=== PATIENT | female | born 2000 | race African-American/Black ===

== ENCOUNTER 2021-07-05 16:53 | Emergency (ER) | payer OTHER ==
[2021-07-05 17:23] VITALS: BP 102/70; PULSE 88; TEMP 97.8; BMI 19.9
== END 2021-07-05 18:13 | disposition home or self-care (01) ==
LOC: JER 16:53 → JERFT 16:53
DX: N64.4 Mastodynia (principal)
CPT/HCPCS: 99282-25

== ENCOUNTER 2022-06-07 12:23 | Emergency (ER) | payer OTHER ==
[2022-06-07 12:42] VITALS: BP 102/68; PULSE 89; RESP 20; TEMP 98.4; BMI 20.5
[2022-06-07 14:50] LABS: HCG,QUALITATIVE URINE Negative
[2022-06-07 14:51] LABS: EPI CELLS >36 /uL (0-25.1); HYALINE CASTS 2 /uL (0-3.1); PH,URINE 8.5 (5.0-8.0); URINE APPEARANCE CLOUDY; URINE BACTERIA 508 /uL (0-1359); URINE BILIRUBIN NEGATIVE (NEGATIVE); URINE COLOR YELLOW; URINE GLUCOSE (UA) NEGATIVE (NEGATIVE); URINE KETONE TRACE (NEGATIVE); URINE LEUK ESTERASE 2+ (NEGATIVE); URINE NITRITE NEGATIVE (NEGATIVE); URINE PROTEIN TRACE (NEGATIVE); URINE RBC 22 /uL (0-23.9); URINE WBC 172 /uL (0-25.8)
== END 2022-06-07 15:26 | disposition home or self-care (01) ==
LOC: JERFT 12:23
DX: N30.00 Acute cystitis without hematuria (principal)
CPT/HCPCS: 36415; 81003; 84703; 87070; 87077; 87086; 87205; 87491; 87591; 99283-25

== ENCOUNTER 2023-01-31 15:30 | Emergency (ER) | payer OTHER ==
[2023-01-31 15:39] VITALS: BP 104/63; PULSE 99; RESP 20; TEMP 98.3; BMI 23.0
== END 2023-01-31 17:34 | disposition home or self-care (01) ==
LOC: JER 15:30
DX: R07.89 Other chest pain (principal); M41.124 Adolescent idiopathic scoliosis, thoracic region
CPT/HCPCS: 71045-TC-FY; 93005; 93010; 99284-25

== ENCOUNTER 2023-12-25 10:57 | Emergency (ER) | payer OTHER ==
[2023-12-25 11:05] VITALS: BP 96/51; PULSE 76; RESP 18; TEMP 98.2; BMI 20.1
[2023-12-25] MEDS ORDERED: ACETAMINOPHEN 160 MG/5 ML 473ML BULK BOTTLE ONE (13:03)
[2023-12-25 13:09] LABS: SYPHILIS W/ RPR CONF NON-REACTIVE (NONREACTIVE)
[2023-12-25] MEDS: ACETAMINOPHEN 160 MG/5 ML *Children Solution PO ONE (13:25)
[2023-12-25 13:38] LABS: HIV INTERPRETATION NEGATIVE (NEGATIVE)
[2023-12-25 14:26] LABS: PH,URINE 5.5 (5.0-8.0); URINE APPEARANCE CLOUDY; URINE BILIRUBIN NEGATIVE (NEGATIVE); URINE COLOR YELLOW; URINE GLUCOSE (UA) NEGATIVE (NEGATIVE); URINE KETONE TRACE (NEGATIVE); URINE PROTEIN NEGATIVE (NEGATIVE)
[2023-12-25 14:28] LABS: URINE NITRITE NEGATIVE (NEGATIVE)
[2023-12-25 14:29] LABS: EPI CELLS >36 /uL (0-25.1); HYALINE CASTS 5 /uL (0-3.1); URINE BACTERIA 2505 /uL (0-1359); URINE WBC 51 /uL (0-25.8)
[2023-12-25] MEDS ORDERED: DEXAMETHASONE SOD PHOSPHATE 10 MG/1 ML VIAL ONE (14:50)
[2023-12-25] MEDS ORDERED: CEPHALEXIN MONOHYDRATE 500 MG CAPSULE (UD) ONE (15:05)
[2023-12-25] MEDS: DEXAMETHASONE LIQUID 0.5 MG/5 ML PO ONE (15:08)
[2023-12-25] MEDS: CEPHALEXIN MONOHYDRATE 500 MG CAPSULE (UD) PO ONE (15:08)
[2023-12-25 15:26] LABS: URINE LEUK ESTERASE 1+ (NEGATIVE)
[2023-12-25 15:27] LABS: URINE RBC 20.3 /uL (0-23.9)
== END 2023-12-25 16:34 | disposition home or self-care (01) ==
LOC: JERFT 10:57
DX: J02.9 Acute pharyngitis, unspecified (principal); M79.645 Pain in left finger(s); Z11.3 Encounter for screening for infections with a predominantly sexual mode of transmission; W22.8XXA Striking against or struck by other objects, initial encounter; Z20.822 Contact with and (suspected) exposure to COVID-19
CPT/HCPCS: 0241U-QW; 36415; 73130-TC-LT-FY; 81003; 84703; 86780; 87070; 87389; 87491; 87591; 87651; 99284-25

== ENCOUNTER 2023-12-29 10:23 | Emergency (ER) | payer OTHER ==
[2023-12-29 10:28] VITALS: BP 96/58; PULSE 82; RESP 20; TEMP 97.7; BMI 20.1
[2023-12-29] MEDS ORDERED: ACETAMINOPHEN 500 MG TABLET (FP) ONE (10:49)
[2023-12-29] MEDS ORDERED: LIDOCAINE HCL 1%, 10 MG/ML (20ML VIAL) ONE (10:51)
[2023-12-29] MEDS: ACETAMINOPHEN 500 MG TABLET (FP) PO ONE (10:57)
[2023-12-29] MEDS: LIDOCAINE HCL 1%, 10 MG/ML (50 mL VIAL) SQ ONE (10:58)
== END 2023-12-29 11:06 | disposition home or self-care (01) ==
LOC: JERFT 10:23
DX: A54.5 Gonococcal pharyngitis (principal)
CPT/HCPCS: 99284-25

== ENCOUNTER 2024-02-20 14:58 | Emergency (ER) | payer OTHER ==
[2024-02-20 15:05] VITALS: BP 102/68; RESP 16; TEMP 98.1; BMI 18.5
[2024-02-20 15:56] VITALS: PULSE 77
== END 2024-02-20 16:02 | disposition home or self-care (01) ==
LOC: JERFT 14:58
DX: K62.89 Other specified diseases of anus and rectum (principal); K60.2 Anal fissure, unspecified
CPT/HCPCS: 99283-25